=== PATIENT | female | born 1995 | race Caucasian/White ===

== ENCOUNTER → 2017-10-17 | Outpatient (REF) | payer OTHER | LOC: M LAB REF 18:28 | PROVIDERS: ATTEND Physician Assistant Medical | DX: J02.9 Acute pharyngitis, unspecified (principal) ==

== ENCOUNTER 2017-12-03 11:12 | Emergency (ER) | payer OTHER, MEDICAID ==
[2017-12-03] MEDS: ACETAMINOPHEN 325 MG TAB PO (15:06)
== END 2017-12-03 15:37 | disposition home or self-care (01) ==
LOC: M ED 11:12
DX: Z04.1 Encounter for examination and observation following transport accident (principal); W22.11XA Striking against or struck by driver side automobile airbag, initial encounter; V49.40XA Driver injured in collision with unspecified motor vehicles in traffic accident, initial encounter; Y92.410 Unspecified street and highway as the place of occurrence of the external cause; Z3A.23 23 weeks gestation of pregnancy; Z88.8 Allergy status to other drugs, medicaments and biological substances; Z87.891 Personal history of nicotine dependence; Z98.890 Other specified postprocedural states
CPT/HCPCS: 99284